=== PATIENT | male | born 1990 | race Caucasian/White ===

== ENCOUNTER 2021-11-04 11:56 | Day surgery (SDC) | payer OTHER ==
[2021-11-04] MEDS ORDERED: LACTATED RINGERS 1,000 ML IV ONE (12:00)
[2021-11-04] MEDS ORDERED: PROPOFOL 200 MG/20 ML VIAL IVP ONE ×3 (12:24→14:03)
--- NOTE | 2021-11-04 12:36 | ANESTHESIA ---
Pre-Anesthesia VS, & Labs Height: 5 ft 10 in Weight (kg): 124 kg Body Mass Index: 39.2 BMI Classification: Obese - NPO >8 hours - Lab Results Lab results reviewed: No <Kate Wiseman - Last Filed: 11/04/21 12:52> - NPO >8 hours <Susana Stein - Last Filed: 11/04/21 14:08> - Diagnosis chronic heartburn (Kate Wiseman) - Procedure EGD (Kate Wiseman) Vital Signs: Temp Pulse Resp BP Pulse Ox 36.5 C 70 16 127/64 98 11/04/21 12:14 11/04/21 12:14 11/04/21 12:14 11/04/21 12:14 11/04/21 12:14 Home Medications and Allergies <Kate Wiseman - Last Filed: 11/04/21 12:52> <Susana Stein E - Last Filed: 11/04/21 14:08> Home Medications: Ambulatory Orders No Known Home Medications 11/03/21 No Known Home Medications 11/03/21 Allergies/Adverse Reactions: Allergies Allergy/AdvReac Type Severity Reaction Status Date / Time No Known Drug Allergies Allergy Verified 11/03/21 11:50 Anes History & Medical History - Anesthetic History Anesthesia Complications: reports: No previous complications Family history of Anesthesia Complications: Denies Family history of Malignant Hyperthermia: Denies - Medical History Cardiovascular: reports: None Pulmonary: reports: Sleep apnea, CPAP use Gastrointestinal: reports: GERD, Other (dysphagia, coughing up blood - last bloody emesis yesterday) Urinary: reports: None Neuro: reports: None Musculoskeletal: reports: None Endocrine/Autoimmune: reports: None Blood Disorders: reports: None Skin: reports: None Smoking Status: Never smoker Psychosocial: reports: No issues indicated History of Cancer?: No <Kate Wiseman - Last Filed: 11/04/21 12:52> Exam General: Alert, Oriented x3, Cooperative, No acute distress Dental: WNL, Poor dentition Mouth Openin Fingerbreadth Neck Mobility: Normal Mallampati classification: II Thyromental Distance: less than 4 cm (+barrios) Respiratory: Lungs clear, Normal breath sounds, No respiratory distress, No accessory muscle use Cardiovascular: Regular rate, Normal S1, Normal S2, No murmurs Mental/Cognitive Status: Alert/Oriented X3, Normal for patient Cognitive Status: Within normal limits <Kate Wiseman - Last Filed: 11/04/21 12:52> Plan Anesthesia Type: General, Total IV Consent for Procedure(s) Verified and Reviewed: Yes Code Status: Attempt Resuscitation ASA classification: 1-Healthy patient Is this case an emergency?: No <Kate Wiseman - Last Filed: 11/04/21 12:52> Anesthesia Type: Total IV Consent for Procedure(s) Verified and Reviewed: Yes Code Status: Attempt Resuscitation ASA classification: 2-Mild systemic disease (Secondary to elevated BMI) <Susana Stein - Last Filed: 11/04/21 14:08>
[2021-11-04] MEDS ORDERED: ONDANSETRON 4 MG/2 ML VIAL ONE (13:38)
[2021-11-04] MEDS ORDERED: LIDOCAINE-MPF 2% 5 ML VIAL ONE (13:38)
--- NOTE | 2021-11-04 14:09 | ANESTHESIA POST OP EVALUATION ---
Anesthesia Post Eval - Post Anesthesia Eval Vitals: Last Vital Signs Temp 36.5 C 11/04/21 12:14 Pulse 70 11/04/21 12:14 Resp 16 11/04/21 12:14 BP 127/64 11/04/21 12:14 Pulse Ox 98 11/04/21 12:14 CV Function Including HR & BP: Stable Pain Control: Satisfactory Nausea & Vomiting: Negative Mental Status: Baseline Respiratory Status: Airway Patent Hydration Status: Satisfactory Anesthesia Complications: None
[2021-11-04 14:32] VITALS: BP 112/71
== END 2021-11-04 11:57 | disposition home or self-care (01) ==
LOC: SDS 11:56
PROVIDERS: ATTEND Surgery
PROC: 0DB78ZX Excision of Stomach, Pylorus, Via Natural or Artificial Opening Endoscopic, Diagnostic (ICD-10-PCS; 2021-11-04)
PROC: 0DB28ZX Excision of Middle Esophagus, Via Natural or Artificial Opening Endoscopic, Diagnostic (ICD-10-PCS; 2021-11-04)
PROC: 0DB38ZX Excision of Lower Esophagus, Via Natural or Artificial Opening Endoscopic, Diagnostic (ICD-10-PCS; principal; 2021-11-04 13:30)
DX: K21.9 Gastro-esophageal reflux disease without esophagitis (principal); K22.10 Ulcer of esophagus without bleeding; R13.10 Dysphagia, unspecified; G47.30 Sleep apnea, unspecified; E66.9 Obesity, unspecified; Z68.39 Body mass index [BMI] 39.0-39.9, adult
CPT/HCPCS: 43239; J7120